=== PATIENT | female | born 1995 | race Caucasian/White ===

== ENCOUNTER 2016-10-26 21:34 | Emergency (ER) | payer MEDICAID ==
[~2016-10-26] VITALS: Ht 160 cm; Wt 73.7 kg
[2016-10-26 23:30] LABS: PATH.CAST-FLAG NOT PRESENT; SPERM-FLAG NOT PRESENT; SRC-FLAG NOT PRESENT; XTAL-FLAG NOT PRESENT; YLC-FLAG NOT PRESENT
[2016-10-26 23:31] LABS: HCG UR OBC PASS
[2016-10-26] MEDS ORDERED: KETOROLAC 30 MG/1 ML ONE (23:55)
[2016-10-27] MEDS ORDERED: KETOROLAC 30 MG/1 ML IM ONE
[2016-10-27 00:13] VITALS: BP 127/77
== END 2016-10-27 00:15 | disposition home or self-care (01) ==
LOC: ED 23:59
DX: N39.0 Urinary tract infection, site not specified (principal); N12 Tubulo-interstitial nephritis, not specified as acute or chronic
CPT/HCPCS: 81001; 81025; 87077; 87086; 96372; 99284; J1885